=== PATIENT | female | born 1990 | race Caucasian/White ===

== ENCOUNTER 2021-05-03 15:28 | Outpatient (CLI) | payer OTHER ==
[~2021-05-03 15:28] MED LIST: COLACE 100MG C100 MG PO; GLUCOPHAGE XR750 MG PO; IBUPROFEN600 MG PO; LORTAB 5-325 M1 EACH PO; PRENATAL VITAM1 EAC8 PO; ZANTAC150 MG PO
[2021-05-03] MEDS ORDERED: MACROBID 100 M100 MG PO (20:32)
== END 2021-05-03 20:17 | disposition home or self-care (01) ==
LOC: GENOP 15:28
DX: O36.8130 Decreased fetal movements, third trimester, not applicable or unspecified (principal); O99.891 Other specified diseases and conditions complicating pregnancy; R11.0 Nausea; O24.415 Gestational diabetes mellitus in pregnancy, controlled by oral hypoglycemic drugs; O99.213 Obesity complicating pregnancy, third trimester; E66.9 Obesity, unspecified; Z87.891 Personal history of nicotine dependence; Z91.048 Other nonmedicinal substance allergy status; Z3A.34 34 weeks gestation of pregnancy
CPT/HCPCS: 59025; 81001

== ENCOUNTER 2021-06-05 12:58 | Outpatient (CLI) | payer OTHER ==
[~2021-06-05 12:58] MED LIST changes: +MACROBID 100 M100 MG PO
[2021-06-05 13:32] LABS: HEMOGLOBIN 12.1 gm/dl (12.3-15.3); RED BLOOD COUNT 3.98 M/UL (4.00-5.10); WHITE BLOOD COUNT 8.9 K/UL (4.5-11.0)
== END 2021-06-05 13:38 | disposition home or self-care (01) ==
LOC: GENOP 12:58
PROVIDERS: Obstetrics & Gynecology
DX: Z53.8 Procedure and treatment not carried out for other reasons (principal)
CPT/HCPCS: 36415; 81001; 85025

== ENCOUNTER 2021-06-07 05:26 | Inpatient (IN) | payer OTHER ==
[~2021-06-07] VITALS: Ht 149.9 cm; Wt 91.2 kg
[2021-06-07] MEDS ORDERED: PRENATABS FA T1 EACH PO (06:03)
[2021-06-07] MEDS ORDERED: HYDROCODON-ACE1 EAC4 PO (07:47)
[2021-06-07] MEDS ORDERED: COLACE100 MG PO (07:47)
[2021-06-07] MEDS ORDERED: IBU600 MG PO (07:47)
[2021-06-08 06:23] LABS: HEMOGLOBIN 11.7 gm/dl (12.3-15.3)
== END 2021-06-08 16:59 | disposition home or self-care (01) | DRG 788 ==
LOC: OB 05:26
PROVIDERS: ADMIT Obstetrics & Gynecology
PROC: 4A1HXCZ Monitoring of Products of Conception, Cardiac Rate, External Approach (ICD-10-PCS; 2021-06-07)
PROC: 10D00Z1 Extraction of Products of Conception, Low, Open Approach (ICD-10-PCS; principal; 2021-06-07 07:30)
DX: O34.211 Maternal care for low transverse scar from previous cesarean delivery (principal); Z3A.39 39 weeks gestation of pregnancy; Z37.0 Single live birth; Z20.822 Contact with and (suspected) exposure to COVID-19
CPT/HCPCS: 36415; 81001; 82800; 85014; 85018; 85025; 85461; 86850; 86900; 86901; 90715; C9113; J0690; J1650; J1885; J2274; J2370; J2405; J2590; J2790; J3010; J7120; U0003